=== PATIENT | male | born 1960 | race Caucasian/White ===

== ENCOUNTER → 2016-10-12 | Outpatient (CLI) | payer OTHER ==
--- NOTE | 2016-10-12 12:55 | RAD ---
Indication left hip pain. Chronic. No history of recent injury. AP and frog leg views of the left hip were obtained. No acute bony finding is seen. Significant degenerative changes are not apparent on plain films.
== END | disposition home or self-care (01) ==
LOC: DXRADRC 12:29
PROVIDERS: ATTEND Family Medicine
DX: M25.552 Pain in left hip (principal)
CPT/HCPCS: 73502

== ENCOUNTER → 2017-03-10 | Outpatient (CLI) | payer OTHER ==
--- NOTE | 2017-03-10 12:30 | RAD ---
3 views of the lumbar spine 03/10/2017 Indication: Low back pain. Comparison study: Lumbar spine radiographs October 12, 2013 Findings: No evidence of acute fracture or alignment abnormality is identified. There is degenerative change throughout the lumbar spine with mild diffuse disc space narrowing. There is more severe disc space narrowing at L4-L5 and L5-S1. There is significant facet arthrosis at these levels. Degenerative changes have progressed since October 26, 2013. No significant spondylolisthesis is appreciated radiographically. No acute soft tissue changes are seen. Aortic calcification is noted. 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 No acute osseous abnormality is seen.
== END | disposition home or self-care (01) ==
LOC: DXRADRC 10:57
PROVIDERS: ATTEND Family Medicine
DX: M47.26 Other spondylosis with radiculopathy, lumbar region (principal); I70.0 Atherosclerosis of aorta
CPT/HCPCS: 72100